=== PATIENT | male | born 1990 | race Caucasian/White ===

== ENCOUNTER 2018-03-22 22:56 | Emergency (ER) | payer BC, OTHER ==
--- NOTE | 2018-03-22 23:35 | ERPHSYRPT ---
- History of Present Illness Time Seen by Provider: 03/22/18 23:25 Source: patient, family Exam Limitations: no limitations Patient Subjective Stated Complaint: Pt states that he was having fun with his girlfriend and began having severe right side pain. Pt also c/o dizziness and right hand numbness. Triage Nursing Assessment: Pt alert and oriented. Skin normal color for race. Guarding right side and grimacing occassionally. Lung sounds clear throughout. Bowel sounds present x 4 quadrants. Physician History: 27 y/o white male presents with right lateral chest wall pain. began last pm during sex with his girlfriend. pts pain still present today. pt drove to his parents house and felt a little dizzy. pt has "busted" a few right side ribs a few years ago. has had problems with pain in the area intermittently ever since. pt denies illicit drug use. he denies head injury. he denies new medications. he does not have a cough or soa. he has had no blood loss. Timing/Duration: yesterday Severity: mild Modifying Factors: Improves With: movement (worsens as well as deep breaths) Associated Symptoms: nausea, vomiting, abdominal pain, shortness of breath, heartburn, diaphoresis, cough, chills, chest pain, fever, headaches, loss of appetite, malaise, rash, syncope, seizure, weakness Allergies/Adverse Reactions: No Known Drug Allergies Allergy (Verified 03/22/18 23:20) Hx Tetanus, Diphtheria Vaccination/Date Given: No Hx Influenza Vaccination/Date Given: No Hx Pneumococcal Vaccination/Date Given: No Immunizations Up to Date: No - Review of Systems Constitutional: No Symptoms Eyes: No Symptoms Ears, Nose, & Throat: No Symptoms Respiratory: No Symptoms, No Cough, No Dyspnea, No Stridor, No Wheezing Cardiac: No Symptoms Abdominal/Gastrointestinal: No Symptoms, No Abdominal Pain, No Nausea, No Vomiting, No Diarrhea Genitourinary Symptoms: No Symptoms, No Dysuria, No Frequency, No Hematuria Musculoskeletal: Other (right lateral chest wall pain) Skin: No Symptoms Neurological: Dizziness (mild today), No Headache, No Parasthesia, No Seizure Psychological: No Symptoms Endocrine: No Symptoms Hematologic/Lymphatic: No Symptoms Immunological/Allergic: No Symptoms All Other Systems: Reviewed and Negative - Past Medical History Pertinent Past Medical History: Yes Neurological History: No Pertinent History ENT History: No Pertinent History Cardiac History: No Pertinent History Respiratory History: No Pertinent History Endocrine Medical History: No Pertinent History Musculoskeletal History: No Pertinent History GI Medical History: No Pertinent History History: No Pertinent History Psycho-Social History: Depression Male Reproductive Disorders: No Pertinent History Other Medical History: 5 ribs fx right side 2017, left arm laceration - Past Surgical History Past Surgical History: No Neuro Surgical History: No Pertinent History Cardiac: No Pertinent History Respiratory: No Pertinent History Gastrointestinal: No Pertinent History Genitourinary: No Pertinent History Musculoskeletal: No Pertinent History Male Surgical History: No Pertinent History Other Surgical History: left arm laceration sutured - Social History Smoking Status: Current every day smoker How long have you smoked: 4 Exposure to second hand smoke: No Drug Use: marijuana Patient Lives Alone: No - Nursing Vital Signs Nursing Vital Signs: Initial Vital Signs Temperature 97.6 F 03/22/18 22:57 Pulse Rate 75 03/22/18 22:57 Respiratory Rate 22 03/22/18 22:57 Blood Pressure 141/77 03/22/18 22:57 O2 Sat by Pulse Oximetry 99 03/22/18 22:57 Pain Scale Pain Intensity 10 - Physical Exam General Appearance: no apparent distress, alert, anxiety Eye Exam: PERRL/EOMI, eyes nml inspection Ears, Nose, Throat Exam: normal ENT inspection, TMs normal, moist mucous membranes Neck Exam: normal inspection, non-tender, supple, full range of motion Respiratory Exam: normal breath sounds, chest tenderness (right chest wall), lungs clear, airway intact, No respiratory distress, No accessory muscle use, No rhonchi, No wheezing, No stridor Cardiovascular Exam: regular rate/rhythm, normal heart sounds, normal peripheral pulses Gastrointestinal/Abdomen Exam: soft, normal bowel sounds, No tenderness, No guarding, No rebound Rectal Exam: not done Back Exam: normal inspection, normal range of motion, No CVA tenderness, No vertebral tenderness Extremity Exam: normal inspection, normal range of motion, pelvis stable Neurologic Exam: alert, oriented x 3, cooperative, 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 Skin Exam: normal color, warm, dry Lymphatic Exam: No adenopathy SpO2 Interpretation: normal SpO2: 99 Oxygen Delivery: Room Air - Course Nursing assessment & vital signs reviewed: Yes EKG Interpreted by Me: RATE (78), Sinus Rhythm, NORMAL AXIS, NORMAL INTERVALS ( no acute ischemia; no comparison ekg), Non-specific ST Changes Ordered Tests: Active Orders 24 hr Category Date Time Status EKG-ER Only STAT Care 03/22/18 23:38 Active IV Insertion STAT Care 03/22/18 23:38 Active CHEST 2 VIEWS (PA AND LAT) Stat Exams 03/22/18 23:52 Taken BMP Stat Lab 03/22/18 23:15 Completed CBC W DIFF Stat Lab 03/22/18 23:15 Completed TROPONIN Q3H Lab 03/22/18 23:15 Completed TROPONIN Q3H Lab 03/23/18 02:45 Ordered TROPONIN Q3H Lab 03/23/18 05:45 Ordered TROPONIN Q3H Lab 03/23/18 08:45 Ordered TROPONIN Q3H Lab 03/23/18 11:45 Ordered UA W/RFX UR CULTURE Stat Lab 03/22/18 23:15 Completed Lab/Rad Data: Laboratory Result Diagrams 03/22/18 23:15 03/22/18 23:15 Laboratory Results 03/22/18 03/22/18 03/22/18 Range/Units 23:15 23:15 23:15 WBC (4.0-10.5) K/mm3 RBC (4.1-5.6) M/mm3 Hgb (12.5-18.0) gm/dl Hct (42-50) % MCV (78-100) fl MCH (26-32) pg MCHC (32-36) g/dl RDW (11.5-14.0) % Plt Count (150-450) K/mm3 MPV (6-9.5) fl Gran % (36.0-66.0) % Eos # (Auto) (0-0.5) Absolute Lymphs (auto) (1.0-4.6) Absolute Monos (auto) (0.0-1.3) Lymphocytes % (24.0-44.0) % Monocytes % (0.0-12.0) % Eosinophils % (0.00-5.0) % Basophils % (0.0-0.4) % Absolute Granulocytes (1.4-6.9) Basophils # (0-0.4) Sodium 143 (137-145) mmol/L Potassium 4.3 (3.5-5.1) mmol/L Chloride 106 (98-107) mmol/L Carbon Dioxide 24 (22-30) mmol/L Anion Gap 17.3 H (5-15) MEQ/L BUN 9 (9-20) mg/dL Creatinine 0.71 (0.66-1.25) mg/dL Estimated GFR > 60.0 ML/MIN Glucose 93 (74-106) mg/dL Calcium 9.8 (8.4-10.2) mg/dL Troponin I < 0.012 (0.000-0.034) ng/mL Urine Color YELLOW (YELLOW) Urine Appearance CLEAR (CLEAR) Urine pH 6.0 (5-6) Ur Specific Dixie 1.008 (1.005-1.025) Urine Protein NEGATIVE (Negative) Urine Ketones NEGATIVE (NEGATIVE) Urine Blood NEGATIVE (0-5) Johnie/ul Urine Nitrite NEGATIVE (NEGATIVE) Urine Bilirubin NEGATIVE (NEGATIVE) Urine Urobilinogen NEGATIVE (0-1) mg/dL Ur Leukocyte Esterase NEGATIVE (NEGATIVE) Urine WBC (Auto) 0-2 (0-5) /HPF Urine RBC (Auto) NONE (0-2) /HPF U Epithel Cells (Auto) NONE SEEN (FEW) /HPF Urine Mucus (Auto) SLIGHT (NEGATIVE) /HPF Urine Culture Reflexed NO (NO) Urine Glucose NEGATIVE (NEGATIVE) mg/dL 03/22/ Range/Units 23:15 WBC 7.6 (4.0-10.5) K/mm3 RBC 4.91 (4.1-5.6) M/mm3 Hgb 15.1 (12.5-18.0) gm/dl Hct 43.8 (42-50) % MCV 89.2 (78-100) fl MCH 30.8 (26-32) pg MCHC 34.5 (32-36) g/dl RDW 13.4 (11.5-14.0) % Plt Count 387 (150-450) K/mm3 MPV 10.0 H (6-9.5) fl Gran % 44.6 (36.0-66.0) % Eos # (Auto) 0.03 (0-0.5) Absolute Lymphs (auto) 3.07 (1.0-4.6) Absolute Monos (auto) 1.09 (0.0-1.3) Lymphocytes % 40.5 (24.0-44.0) % Monocytes % 14.4 H (0.0-12.0) % Eosinophils % 0.4 (0.00-5.0) % Basophils % 0.1 (0.0-0.4) % Absolute Granulocytes 3.38 (1.4-6.9) Basophils # 0.01 (0-0.4) Sodium (137-145) mmol/L Potassium (3.5-5.1) mmol/L Chloride (98-107) mmol/L Carbon Dioxide (22-30) mmol/L Anion Gap (5-15) MEQ/L BUN (9-20) mg/dL Creatinine (0.66-1.25) mg/dL Estimated GFR ML/MIN Glucose (74-106) mg/dL Calcium (8.4-10.2) mg/dL Troponin I (0.000-0.034) ng/mL Urine Color (YELLOW) Urine Appearance (CLEAR) Urine pH (5-6) Ur Specific Dix[place] (1.005-1.025) Urine Protein (Negative) Urine Ketones (NEGATIVE) Urine Blood (0-5) Johnie/ul Urine Nitrite (NEGATIVE) Urine Bilirubin (NEGATIVE) Urine Urobilinogen (0-1) mg/dL Ur Leukocyte Esterase (NEGATIVE) Urine WBC (Auto) (0-5) /HPF Urine RBC (Auto) (0-2) /HPF U Epithel Cells (Auto) (FEW) /HPF Urine Mucus (Auto) (NEGATIVE) /HPF Urine Culture Reflexed (NO) Urine Glucose (NEGATIVE) mg/dL - Progress Progress: unchanged Progress Note: 03/23/18 00:21 cxr no acute process; no rib fx; no infiltrate Counseled pt/family regarding: lab results, diagnosis, need for follow-up, rad results - Departure Time of Disposition: 00:22 Departure Disposition: Home Clinical Impression: Rib pain on right side Condition: Stable Critical Care Time: No Referrals: DOCTOR,NO FAMILY [Primary Care Provider] - Additional Instructions: follow up with primary doctor for further management. Prescriptions: Cyclobenzaprine HCl 10 mg [Flexeril 10 MG] 10 mg PO TID #12 tablet Naproxen 500 mg [Naprosyn 500 MG] 500 mg PO BID #10 tablet
[2018-03-22 23:51] LABS: BASOPHIL % 0.1 % (0.0-0.4); Basophil (Absolute #) 0.01 (0-0.4); Eosinophil % 0.4 % (0.00-5.0); Eosinophil (Absolute #) 0.03 (0-0.5); Granulocyte Absolute (ANC) 3.38 (1.4-6.9); Granulocytes % 44.6 % (36.0-66.0); Hematocrit 43.8 % (42-50); Hemoglobin 15.1 gm/dl (12.5-18.0); Lymphocyte (Absolute #) 3.07 (1.0-4.6); Lymphocytes % 40.5 % (24.0-44.0); Mean Cell Volume 89.2 fl (78-100); Mean Corpuscular Hemoglobin 30.8 pg (26-32); Mean Corpuscular Hgb Concent. 34.5 g/dl (32-36); Monocyte (Absolute #) 1.09 (0.0-1.3); Monocytes % 14.4 % (0.0-12.0); Platelet Count 387 K/mm3 (150-450); Red Blood Count 4.91 M/mm3 (4.1-5.6); Red Cell Distribution Width 13.4 % (11.5-14.0); White Blood Count 7.6 K/mm3 (4.0-10.5)
[2018-03-22 23:52] LABS: Appearance CLEAR (CLEAR); Bilirubin NEGATIVE (NEGATIVE); Blood NEGATIVE Ery/ul (0-5); Glucose NEGATIVE (NEGATIVE); Ketones NEGATIVE (NEGATIVE); Leukocyte Esterase NEGATIVE (NEGATIVE); Nitrite NEGATIVE (NEGATIVE); Protein,Urine Dip NEGATIVE (Negative); Specific Gravity 1.008 (1.005-1.025); Urobilinogen NEGATIVE mg/dL (0-1)
[2018-03-22 23:57] LABS: ANION GAP 17.3 MEQ/L (5-15); BLOOD UREA NITROGEN 9 mg/dL (9-20); CHLORIDE 106 mmol/L (98-107); Calcium 9.8 mg/dL (8.4-10.2); Carbon Dioxide 24 mmol/L (22-30); Creatinine 1 0.71 mg/dL (0.66-1.25); Glucose 93 mg/dL (74-106); Potassium 4.3 mmol/L (3.5-5.1); SODIUM 143 mmol/L (137-145)
[2018-03-23] MEDS ORDERED: Zofran 4 MG/2 ML VIAL IV ONE (00:19)
[2018-03-23] MEDS ORDERED: MORPHINE SULFATE 2 MG INJ IV ONE (00:19)
[2018-03-23] MEDS ORDERED: Norflex 60 MG/2 ML IV ONE (00:20)
[2018-03-23] MEDS ORDERED: Zofran 4 MG/2 ML VIAL ONE (00:39)
[2018-03-23] MEDS ORDERED: MORPHINE SULFATE 2 MG INJ ONE (00:40)
[2018-03-23] MEDS ORDERED: Norflex 60 MG/2 ML ONE (00:40)
[2018-03-23 01:11] VITALS: BP 109/62; O2SAT 97
[2018-03-23 01:12] VITALS: PULSE 61
--- NOTE | 2018-03-23 09:10 | XRAY ---
Indication: Right rib pain 2 days. Comparison: None PA/lateral chest demonstrates normal heart and lungs. Bony thorax intact with old right 10/11 rib fractures and minimal double curvature scoliosis.
== END 2018-03-23 01:18 | disposition home or self-care (01) ==
LOC: ED 22:56
DX: R07.81 Pleurodynia (principal); R11.2 Nausea with vomiting, unspecified; R55 Syncope and collapse; R10.9 Unspecified abdominal pain; R06.02 Shortness of breath; R51 Headache; R42 Dizziness and giddiness
CPT/HCPCS: 36000; 36415; 71046; 80048; 81001; 84484; 85025; 93005; 96374; 96375; 99284; J2270; J2360; J2405

== ENCOUNTER 2023-02-17 01:18 | Emergency (ER) | payer OTHER ==
[2023-02-17] MEDS ORDERED: Ativan 2 MG/1 ML VIAL ONE (01:37)
[2023-02-17] MEDS ORDERED: Sodium Chloride 0.9% 1000 ML 1,000 ML ONE ×3 (01:39→06:42)
[2023-02-17] MEDS ORDERED: ROCEPHIN 1 Gm-D5w 50 ml Bag** 1 G/50 ML IVPB IV ONE (02:03)
[2023-02-17 03:16] LABS: Absolute Neutrophil Ct (ANC) 14.48 x10^3/uL (1.4-6.9); BASOPHIL % 0.6 % (0.0-0.4); Basophil (Absolute #) 0.12 x10^3/uL (0-0.4); Eosinophil % 0.8 % (0.00-5.0); Eosinophil (Absolute #) 0.16 x10^3/uL (0-0.5); Hematocrit 46.6 % (42-50); Hemoglobin 16.3 g/dL (12.5-18.0); IMMATURE GRAN # 0.11 x10^3u/L (0.00-0.03); IMMATURE GRAN % 0.6 % (0.00-0.4); Lymphocyte (Absolute #) 2.68 x10^3/uL (1.0-4.6); Mean Cell Volume 87.4 fL (78-100); Mean Corpuscular Hemoglobin 30.6 pg (26-32); Mean Platelet Volume 10.3 fL (7.5-11.0); Monocyte (Absolute #) 1.59 x10^3/uL (0.0-1.3); Monocytes % 8.3 % (0.0-12.0); Neutrophil % 75.7 % (36.0-66.0); Platelet Count 381 x10^3/uL (150-450); Red Blood Count 5.33 x10^6/uL (4.1-5.6); Red Cell Distribution Width 13.2 % (11.5-14.0); White Blood Count 19.1 x10^3/uL (4.0-10.5)
[2023-02-17 03:21] LABS: Amphetamine,Urine NEGATIVE (NEGATIVE); Barbiturate,Urine NEGATIVE (NEGATIVE); Benzodiazepine,Urine NEGATIVE (NEGATIVE); Cocaine,Urine NEGATIVE (NEGATIVE); Methadone,Urine NEGATIVE (NEGATIVE); Opiate,Urine NEGATIVE (NEGATIVE); PCP,Urine NEGATIVE (NEGATIVE); THC,Urine POSITIVE (NEGATIVE)
[2023-02-17 03:25] LABS: INR 0.95 (0.8-3.0); PROTIME 10.4 SECONDS (9.4-12.5); PTT 26.8 SECONDS (25.1-36.5)
--- NOTE | 2023-02-17 03:25 | ERPHSYRPT ---
- History of Present Illness Source: patient, family Exam Limitations: clinical condition Physician History: 32 yo wm w altered LOC presents by private vehicle per his parents. Parents state that pt drove himself to their house frantic/dyspneic. They state that pt was drinking some Fireball earlier tonight due to dental pain. Pt arrived to ER hyperventilating/tachycardic/shaking violently/ oriented to name only/Pupils equal but sluggish/good airway/good sats/good BP. IV access started and 1mg IV Ativan x2 which improved tachycardia/hyperventilation. Marion placed before Ativan to obtain urine sample/UDS. Pt rushed to CT scan for CT head/C-spine. Pt became more coherent and stated that he had a toothache and drank 1 shot of Fireball and beer to help it. He also smoked some marijuana yesterday but denies other drug use. Pt also stated that he bought a puppy last night. Throat examined for possible peritonsillar abscess/airway obstruction which was not seen, although generalized erythema of oropharnyx noted. Timing/Duration: today Severity: moderate Modifying Factors: Improves With: nothing Allergies/Adverse Reactions: No Known Drug Allergies Allergy (Verified 03/22/18 23:20) Hx Tetanus, Diphtheria Vaccination/Date Given: No Hx Influenza Vaccination/Date Given: No Hx Pneumococcal Vaccination/Date Given: No - Review of Systems All Other Systems: Unable due to condition - Past Medical History Pertinent Past Medical History: Yes Neurological History: No Pertinent History ENT History: No Pertinent History Cardiac History: No Pertinent History Respiratory History: No Pertinent History Endocrine Medical History: No Pertinent History Musculoskeletal History: Fractures GI Medical History: No Pertinent History History: No Pertinent History Psycho-Social History: Depression Male Reproductive Disorders: No Pertinent History Other Medical History: 5 ribs fx right side 2017, left arm laceration - Past Surgical History Past Surgical History: No Neuro Surgical History: No Pertinent History Cardiac: No Pertinent History Respiratory: No Pertinent History Gastrointestinal: No Pertinent History Genitourinary: No Pertinent History Musculoskeletal: No Pertinent History Male Surgical History: No Pertinent History Other Surgical History: left arm laceration sutured - Social History Smoking Status: Current every day smoker How long have you smoked: 4 Exposure to second hand smoke: No Drug Use: marijuana Patient Lives Alone: No - Nursing Vital Signs Nursing Vital Signs: Initial Vital Signs Pulse Rate 92 H 09/22/23 03:15 Respiratory Rate 34 H 02/17/23 03:15 Blood Pressure 128/80 02/17/23 03:15 O2 Sat by Pulse Oximetry 99 02/17/23 03:15 Pain Scale Pain Intensity 2 Tachycardic/Sats 99%/Hypertensive upon arrival - Physical Exam General Appearance: moderate distress Eye Exam: other (Sluggish) Ears, Nose, Throat Exam: TMs normal, pharyngeal erythema (Mild/Good airway), No tonsillar exudate Neck Exam: normal inspection, non-tender, supple, full range of motion, No meningismus, No mass, No Brudzinski, No Kernig's Respiratory Exam: lungs clear, airway intact, other (Hyperventilating), No resp iratory distress Cardiovascular Exam: tachycardia, No murmur Gastrointestinal/Abdomen Exam: soft, normal bowel sounds, No tenderness Back Exam: normal inspection, normal range of motion, No CVA tenderness Extremity Exam: normal inspection, normal range of motion Neurologic Exam: disoriented, confusion, No motor deficits, No motor weakness, No facial droop, No slurred speech Skin Exam: normal color, warm, dry, No rash SpO2 Interpretation: normal SpO2: 97 O2 Delivery: Room Air - Course Nursing assessment & vital signs reviewed: Yes EKG Interpreted by Me: RATE (Sinus tach/Rate 106/Normal QT-QTc/No acute St segment changes/Possible LVH) - CT Exams Head CT Interpretation: Tele-radiologist Report (NAD/Minimal L ethmoidal/B maxillary sinusitis) Cervical Spine CT Interpretation: Tele-radiologist Report (Straightening) Chest CT Interpretation: Tele-radiologist Report (0.3cm nodule STEPHEN) Soft Tissue Neck CT Interpretation: Tele-radiologist Report (L submandibular abscess/lingual and palatine tonsillar hypertrophy) Ordered Tests: Medication Summary Discontinued Medications Generic Name Dose Route Start Last Admin Trade Name Freq PRN Reason Stop Dose Admin Sodium Chloride Confirm 02/17/23 03:23 Sodium Chloride 0.9% 1000 Ml Administered 02/17/23 03:24 Dose 1,000 mls @ ud .ROUTE .STK-MED ONE Clindamycin HCl/Dextrose 900 mg in 50 mls @ 100 mls/hr 02/17/23 05:33 02/17/23 05:47 Clindamycin-D5w 900 Mg/50 Ml IV 02/17/23 06:02 100 mls/hr STAT STA 100 mls/hr Administration Clindamycin HCl/Dextrose Confirm 02/17/23 05:47 Clindamycin-D5w 900 Mg/50 Ml Administered 02/17/23 05:48 Dose 900 mg in 50 mls @ ud IV .STK-MED ONE Sodium Chloride Confirm 02/17/23 06:42 Sodium Chloride 0.9% 1000 Ml Administered 02/17/23 06:43 Dose 1,000 mls @ ud .ROUTE .STK-MED ONE Sodium Chloride Confirm 02/17/23 01:39 Sodium Chloride 0.9% 1000 Ml Administered 02/17/23 01:40 Dose 1,000 mls @ ud .ROUTE .STK-MED ONE Ceftriaxone Sodium/Dextrose Confirm 02/17/23 02:03 Rocephin 1 Gm-D5w 50 Ml Bag Administered 02/17/23 02:04 Dose 1 g in 50 mls @ IV .STK-MED ONE Ketorolac Tromethamine 15 mg 02/17/23 03:46 02/17/23 03:48 Ketorolac Tromethamine 30 Mg/Ml Inj IV 02/17/23 03:47 15 mg STAT ONE Administration Ketorolac Tromethamine Confirm 02/17/23 03:47 Ketorolac Tromethamine 30 Mg/Ml Inj Administered 02/17/23 03:48 Dose 30 mg .ROUTE .STK-MED ONE Lorazepam Confirm 02/17/23 01:37 Lorazepam 2 Mg/1 Ml 2 Mg Vial Administered 02/17/23 01:38 Dose 2 mg .ROUTE .STK-MED ONE Lab/Rad Data: Laboratory Result Diagrams 02/17/23 01:43 02/17/23 01:43 Laboratory Results 02/17/23 02/17/23 02/17/23 Range/Units Unknown 04:48 03:49 WBC (4.0-10.5) x10^3/uL RBC (4.1-5.6) x10^6/uL Hgb (12.5-18.0) g/dL Hct (42-50) % MCV (78-100) fL MCH (26-32) pg MCHC (32-36) g/dL RDW (11.5-14.0) % Plt Count (150-450) x10^3/uL MPV (7.5-11.0) fL Gran % (36.0-66.0) % Immature Gran % (Auto) (0.00-0.4) % Nucleat RBC Rel Count (0.00-0.1) % Eos # (Auto) (0-0.5) x10^3/uL Immature Gran # (Auto) (0.00-0.03) x10^3u/L Absolute Lymphs (auto) (1.0-4.6) x10^3/uL Absolute Monos (auto) (0.0-1.3) x10^3/uL Absolute Nucleated RBC (0.00-0.01) x10^3u/L Lymphocytes % (24.0-44.0) % Monocytes % (0.0-12.0) % Eosinophils % (0.00-5.0) % Basophils % (0.0-0.4) % Absolute Granulocytes (1.4-6.9) x10^3/uL Basophils # (0-0.4) x10^3/uL PT (9.4-12.5) SECONDS INR (0.8-3.0) APTT (25.1-36.5) SECONDS Puncture Site pCO2 (35-45) mmHg pO2 (75-100) mmHg Base Excess (-2.0-2.0) O2 Saturation (94-100) g/dF ABG pH (7.35-7.45) ABG HCO3 (22-28) ABG O2 Sat (Measured) (95-100) % Juan Test A-a Gradient a/A Ratio Hemoglobin Carboxyhemoglobin (0.0-6.9) % THgb Methemoglobin (1.4-1.5) % Potassium (3.5-5.1) POC O2 Flow Rate % Sodium (137-145) mmol/L Chloride (98-107) mmol/L Carbon Dioxide (23-27) mEq/L Anion Gap (5-15) MEQ/L BUN (9-20) mg/dL Creatinine (0.66-1.25) mg/dL Estimated GFR ML/MIN Glucose (74-106) mg/dL Lactic Acid 1.1 (0.4-2.0) Calcium (8.4-10.2) mg/dL Total Bilirubin (0.2-1.3) mg/dL AST (17-59) U/L ALT (0-50) U/L Alkaline Phosphatase (38-126) U/L Troponin I (0.000-0.034) ng/mL Serum Total Protein (6.3-8.2) g/dL Albumin (3.5-5.0) g/dL Urine Color (Yellow) Urine Appearance (Clear) Urine pH (4.6-8.0) Ur Specific [place] (1.005-1.030) Urine Protein (Negative) Urine Glucose (UA) (Negative) mg/dL Urine Ketones (Negative) Urine Blood (Negative) Urine Nitrite (Negative) Urine Bilirubin (Negative) Urine Urobilinogen (0.2) mg/dL Ur Leukocyte Esterase (Negative) Urine Microscopic RBC (0-5) /HPF Urine Microscopic WBC (0-5) /HPF Ur Epithelial Cells (None Seen) /HPF Urine Bacteria (None Seen) /HPF Urine Culture Reflexed (NO) Salicylates (2-20) mg/dL Urine Opiates Level (NEGATIVE) Ur Methadone (NEGATIVE) Acetaminophen (10-30) ug/ml Urine Barbiturates (NEGATIVE) Ur Phencyclidine (PCP) (NEGATIVE) Urine Amphetamine (NEGATIVE) U Benzodiazepine Level (NEGATIVE) Urine Cocaine (NEGATIVE) Urine Marijuana (THC) (NEGATIVE) Ethyl Alcohol (0-10) mg/dL Monoscreen NEGATIVE (NEGATIVE) Influenza Type A Ag NEGATIVE (NEGATIVE) Influenza Type B Ag NEGATIVE (NEGATIVE) RSV (PCR) NEGATIVE (NEGATIVE) SARS-CoV-2 (PCR) NEGATIVE (NEGATIVE) Group A Strep Antibody (NEGATIVE) 02/17/23 02/17/23 02/17/23 Range/Units 01:43 01:43 01:43 WBC (4.0-10.5) x10^3/uL RBC (4.1-5.6) x10^6/uL Hgb (12.5-18.0) g/dL Hct (42-50) % MCV (78-100) fL MCH (26-32) pg MCHC (32-36) g/dL RDW (11.5-14.0) % Plt Count (150-450) x10^3/uL MPV (7.5-11.0) fL Gran % (36.0-66.0) % Immature Gran % (Auto) (0.00-0.4) % Nucleat RBC Rel Count (0.00-0.1) % Eos # (Auto) (0-0.5) x10^3/uL Immature Gran # (Auto) (0.00-0.03) x10^3u/L Absolute Lymphs (auto) (1.0-4.6) x10^3/uL Absolute Monos (auto) (0.0-1.3) x10^3/uL Absolute Nucleated RBC (0.00-0.01) x10^3u/L Lymphocytes % (24.0-44.0) % Monocytes % (0.0-12.0) % Eosinophils % (0.00-5.0) % Basophils % (0.0-0.4) % Absolute Granulocytes (1.4-6.9) x10^3/uL Basophils # (0-0.4) x10^3/uL PT (9.4-12.5) SECONDS INR (0.8-3.0) APTT (25.1-36.5) SECONDS Puncture Site pCO2 (35-45) mmHg pO2 (75-100) mmHg Base Excess (-2.0-2.0) O2 Saturation (94-100) g/dF ABG pH (7.35-7.45) ABG HCO3 (22-28) ABG O2 Sat (Measured) (95-100) % Juan Test A-a Gradient a/A Ratio Hemoglobin Carboxyhemoglobin (0.0-6.9) % THgb Methemoglobin (1.4-1.5) % Potassium (3.5-5.1) POC O2 Flow Rate % Sodium (137-145) mmol/L Chloride (98-107) mmol/L Carbon Dioxide (23-27) mEq/L Anion Gap (5-15) MEQ/L BUN (9-20) mg/dL Creatinine (0.66-1.25) mg/dL Estimated GFR ML/MIN Glucose (74-106) mg/dL Lactic Acid (0.4-2.0) Calcium (8.4-10.2) mg/dL Total Bilirubin (0.2-1.3) mg/dL AST (17-59) U/L ALT (0-50) U/L Alkaline Phosphatase (38-126) U/L Troponin I (0.000-0.034) ng/mL Serum Total Protein (6.3-8.2) g/dL Albumin (3.5-5.0) g/dL Urine Color Yellow (Yellow) Urine Appearance Clear (Clear) Urine pH 7.5 (4.6-8.0) Ur Specific [place] 1.020 (1.005-1.030) Urine Protein Trace A (Negative) Urine Glucose (UA) Negative (Negative) mg/dL Urine Ketones 15 A (Negative) Urine Blood Negative (Negative) Urine Nitrite Negative (Negative) Urine Bilirubin Negative (Negative) Urine Urobilinogen 1.0 A (0.2) mg/dL Ur Leukocyte Esterase Negative (Negative) Urine Microscopic RBC 0-2 (0-5) /HPF Urine Microscopic WBC 0-2 (0-5) /HPF Ur Epithelial Cells None Seen (None Seen) /HPF Urine Bacteria None Seen (None Seen) /HPF Urine Culture Reflexed NO (NO) Salicylates (2-20) mg/dL Urine Opiates Level NEGATIVE (NEGATIVE) Ur Methadone NEGATIVE (NEGATIVE) Acetaminophen (10-30) ug/ml Urine Barbiturates NEGATIVE (NEGATIVE) Ur Phencyclidine (PCP) NEGATIVE (NEGATIVE) Urine Amphetamine NEGATIVE (NEGATIVE) U Benzodiazepine Level NEGATIVE (NEGATIVE) Urine Cocaine NEGATIVE (NEGATIVE) Urine Marijuana (THC) POSITIVE (NEGATIVE) Ethyl Alcohol (0-10) mg/dL Monoscreen (NEGATIVE) Influenza Type A Ag (NEGATIVE) Influenza Type B Ag (NEGATIVE) RSV (PCR) (NEGATIVE) SARS-CoV-2 (PCR) (NEGATIVE) Group A Strep Antibody NOT DETECTED (NEGATIVE) 02/17/23 02/17/23 02/17/23 Range/Units 01:43 01:43 01:43 WBC 19.1 H (4.0-10.5) x10^3/uL RBC 5.33 (4.1-5.6) x10^6/uL Hgb 16.3 (12.5-18.0) g/dL Hct 46.6 (42-50) % MCV 87.4 (78-100) fL MCH 30.6 (26-32) pg MCHC 35.0 (32-36) g/dL RDW 13.2 (11.5-14.0) % Plt Count 381 (150-450) x10^3/uL MPV 10.3 (7.5-11.0) fL Gran % 75.7 H (36.0-66.0) % Immature Gran % (Auto) 0.6 H (0.00-0.4) % Nucleat RBC Rel Count 0.0 (0.00-0.1) % Eos # (Auto) 0.16 (0-0.5) x10^3/uL Immature Gran # (Auto) 0.11 H (0.00-0.03) x10^3u/L Absolute Lymphs (auto) 2.68 (1.0-4.6) x10^3/uL Absolute Monos (auto) 1.59 H (0.0-1.3) x10^3/uL Absolute Nucleated RBC 0.00 (0.00-0.01) x10^3u/L Lymphocytes % 14.0 L (24.0-44.0) % Monocytes % 8.3 (0.0-12.0) % Eosinophils % 0.8 (0.00-5.0) % Basophils % 0.6 (0.0-0.4) % Absolute Granulocytes 14.48 H (1.4-6.9) x10^3/uL Basophils # 0.12 (0-0.4) x10^3/uL PT 10.4 (9.4-12.5) SECONDS INR 0.95 (0.8-3.0) APTT 26.8 (25.1-36.5) SECONDS Puncture Site pCO2 (35-45) mmHg pO2 (75-100) mmHg Base Excess (-2.0-2.0) O2 Saturation (94-100) g/dF ABG pH (7.35-7.45) ABG HCO3 (22-28) ABG O2 Sat (Measured) (95-100) % Juan Test A-a Gradient a/A Ratio Hemoglobin Carboxyhemoglobin (0.0-6.9) % THgb Methemoglobin (1.4-1.5) % Potassium 3.8 (3.5-5.1) POC O2 Flow Rate % Sodium 141 (137-145) mmol/L Chloride 104 (98-107) mmol/L Carbon Dioxide 17 L (23-27) mEq/L Anion Gap 23.8 H (5-15) MEQ/L BUN 9 (9-20) mg/dL Creatinine 0.72 (0.66-1.25) mg/dL Estimated GFR > 60.0 ML/MIN Glucose 108 H (74-106) mg/dL Lactic Acid (0.4-2.0) Calcium 9.6 (8.4-10.2) mg/dL Total Bilirubin 0.50 (0.2-1.3) mg/dL AST 28 (17-59) U/L ALT 19 (0-50) U/L Alkaline Phosphatase 92 (38-126) U/L Troponin I < 0.012 (0.000-0.034) ng/mL Serum Total Protein 8.9 H (6.3-8.2) g/dL Albumin 5.3 H (3.5-5.0) g/dL Urine Color (Yellow) Urine Appearance (Clear) Urine pH (4.6-8.0) Ur Specific [place] (1.005-1.030) Urine Protein (Negative) Urine Glucose (UA) (Negative) mg/dL Urine Ketones (Negative) Urine Blood (Negative) Urine Nitrite (Negative) Urine Bilirubin (Negative) Urine Urobilinogen (0.2) mg/dL Ur Leukocyte Esterase (Negative) Urine Microscopic RBC (0-5) /HPF Urine Microscopic WBC (0-5) /HPF Ur Epithelial Cells (None Seen) /HPF Urine Bacteria (None Seen) /HPF Urine Culture Reflexed (NO) Salicylates < 1.0 L (2-20) mg/dL Urine Opiates Level (NEGATIVE) Ur Methadone (NEGATIVE) Acetaminophen < 10 L (10-30) ug/ml Urine Barbiturates (NEGATIVE) Ur Phencyclidine (PCP) (NEGATIVE) Urine Amphetamine (NEGATIVE) U Benzodiazepine Level (NEGATIVE) Urine Cocaine (NEGATIVE) Urine Marijuana (THC) (NEGATIVE) Ethyl Alcohol 105 H (0-10) mg/dL Monoscreen (NEGATIVE) Influenza Type A Ag (NEGATIVE) Influenza Type B Ag (NEGATIVE) RSV (PCR) (NEGATIVE) SARS-CoV-2 (PCR) (NEGATIVE) Group A Strep Antibody (NEGATIVE) 02/17/23 Range/Units 01:25 WBC (4.0-10.5) x10^3/uL RBC (4.1-5.6) x10^6/uL Hgb (12.5-18.0) g/dL Hct (42-50) % MCV (78-100) fL MCH (26-32) pg MCHC (32-36) g/dL RDW (11.5-14.0) % Plt Count (150-450) x10^3/uL MPV (7.5-11.0) fL Gran % (36.0-66.0) % Immature Gran % (Auto) (0.00-0.4) % Nucleat RBC Rel Count (0.00-0.1) % Eos # (Auto) (0-0.5) x10^3/uL Immature Gran # (Auto) (0.00-0.03) x10^3u/L Absolute Lymphs (auto) (1.0-4.6) x10^3/uL Absolute Monos (auto) (0.0-1.3) x10^3/uL Absolute Nucleated RBC (0.00-0.01) x10^3u/L Lymphocytes % (24.0-44.0) % Monocytes % (0.0-12.0) % Eosinophils % (0.00-5.0) % Basophils % (0.0-0.4) % Absolute Granulocytes (1.4-6.9) x10^3/uL Basophils # (0-0.4) x10^3/uL PT (9.4-12.5) SECONDS INR (0.8-3.0) APTT (25.1-36.5) SECONDS Puncture Site RIGHT RADIAL pCO2 15 L* (35-45) mmHg pO2 118 H (75-100) mmHg Base Excess -0.3 (-2.0-2.0) O2 Saturation 96.8 (94-100) g/dF ABG pH 7.65 H* (7.35-7.45) ABG HCO3 16.5 L* (22-28) ABG O2 Sat (Measured) 99 (95-100) % Juan Test YES A-a Gradient 13 a/A Ratio 0.90 Hemoglobin 16.7 Carboxyhemoglobin 2.2 (0.0-6.9) % THgb Methemoglobin 0.9 L (1.4-1.5) % Potassium 3.9 (3.5-5.1) POC O2 Flow Rate 21 % Sodium (137-145) mmol/L Chloride (98-107) mmol/L Carbon Dioxide 17 L (23-27) mEq/L Anion Gap (5-15) MEQ/L BUN (9-20) mg/dL Creatinine (0.66-1.25) mg/dL Estimated GFR ML/MIN Glucose (74-106) mg/dL Lactic Acid (0.4-2.0) Calcium (8.4-10.2) mg/dL Total Bilirubin (0.2-1.3) mg/dL AST (17-59) U/L ALT (0-50) U/L Alkaline Phosphatase (38-126) U/L Troponin I (0.000-0.034) ng/mL Serum Total Protein (6.3-8.2) g/dL Albumin (3.5-5.0) g/dL Urine Color (Yellow) Urine Appearance (Clear) Urine pH (4.6-8.0) Ur Specific [place] (1.005-1.030) Urine Protein (Negative) Urine Glucose (UA) (Negative) mg/dL Urine Ketones (Negative) Urine Blood (Negative) Urine Nitrite (Negative) Urine Bilirubin (Negative) Urine Urobilinogen (0.2) mg/dL Ur Leukocyte Esterase (Negative) Urine Microscopic RBC (0-5) /HPF Urine Microscopic WBC (0-5) /HPF Ur Epithelial Cells (None Seen) /HPF Urine Bacteria (None Seen) /HPF Urine Culture Reflexed (NO) Salicylates (2-20) mg/dL Urine Opiates Level (NEGATIVE) Ur Methadone (NEGATIVE) Acetaminophen (10-30) ug/ml Urine Barbiturates (NEGATIVE) Ur Phencyclidine (PCP) (NEGATIVE) Urine Amphetamine (NEGATIVE) U Benzodiazepine Level (NEGATIVE) Urine Cocaine (NEGATIVE) Urine Marijuana (THC) (NEGATIVE) Ethyl Alcohol (0-10) mg/dL Monoscreen (NEGATIVE) Influenza Type A Ag (NEGATIVE) Influenza Type B Ag (NEGATIVE) RSV (PCR) (NEGATIVE) SARS-CoV-2 (PCR) (NEGATIVE) Group A Strep Antibody (NEGATIVE) - Progress Progress Note: 02/17/23 05:41 Nursing Note and vital signs reviewed No food or housing insecurities noted All lab results reviewed and shared w pt/mother/father All CT results reviewed and shared w pt/mother/father 1L NS bolus x2 1gm IV Rocephin 900mg IV Clind[facility] to accept pt Pt direct accept to [facility] Unable to find ground transport for pt 02/17/23 06:01 02/17/23 06:44 Pt stable when [facility] assumed care Counseled pt/family regarding: lab results, diagnosis, rad results Medical Desision Making - Independent Historian Additional History obtained from: Mother, Father - Diagnostic Testing Diagnostic test were ordered, analyzed, and reviewed by me: Yes Radiological Interpretation: Teleradiologist Report - Risk of complications The pt has a high risk of morbidity or mortality based on: Drug therapy requiring intensive monitoring for toxicity, Decision regarding hospitilization or escalation of hosp level of care - Departure Departure Disposition: Transfer Clinical Impression: Submandibular abscess, Pharyngitis, Sepsis, Alcohol intoxication Condition: Stable Critical Care Time: Yes Critical Care Time(excluding separately billable procedures): Critical 75-104 mins Referrals: DOCTOR,NO FAMILY [Primary Care Provider] - Follow up/PCP as directed
[2023-02-17 03:32] LABS: ALBUMIN 5.3 g/dL (3.5-5.0); ALKALINE PHOSPHATASE 92 U/L (38-126); BLOOD UREA NITROGEN 9 mg/dL (9-20); CHLORIDE 104 mmol/L (98-107); Creatinine 1 0.72 mg/dL (0.66-1.25); EST GLOMERULAR FILTRATION RATE > 60.0 ML/MIN; ETHYL ALCOHOL 105 mg/dL (0-10); Glucose 108 mg/dL (74-106); Potassium 3.8 mmol/L (3.5-5.1); SGOT/AST 28 U/L (17-59); SODIUM 141 mmol/L (137-145); TROPONIN < 0.012 ng/mL (0.000-0.034); Total Protein 8.9 g/dL (6.3-8.2)
[2023-02-17 03:33] LABS: Carbon Dioxide 17 mmol/L (22-30)
[2023-02-17 03:33] LABS: ARTERIAL BLOOD GAS pH 7.65 (7.35-7.45)
[2023-02-17 03:34] LABS: A-aADO2 13; ARTERIAL BLD GAS O2 SATURATION 99 % (95-100); ARTERIAL BLOOD GAS BASE EXCESS -0.3 (-2.0-2.0); ARTERIAL BLOOD GAS PCO2 15 mmHg (35-45); ARTERIAL BLOOD GAS PO2 118 mmHg (75-100); CARBON DIOXIDE 17 mEq/L (23-27); HCO3- 16.5 (22-28)
[2023-02-17 03:34] LABS: ACETAMINOPHEN < 10 ug/ml (10-30); Calcium 9.6 mg/dL (8.4-10.2); SALICYLATE < 1.0 mg/dL (2-20); SGPT/ALT 19 U/L (0-50)
[2023-02-17 03:35] LABS: ANION GAP 23.8 MEQ/L (5-15)
[2023-02-17 03:35] LABS: ABG HEMOGLOBIN 16.7; ABG POTASSIUM 3.9 (3.5-5.1); ABG SITE RIGHT RADIAL; ALLEN TEST OK? YES; ARTERIAL BLOOD GAS FIO2 21 %; CARBOXYHEMOGLOBIN 2.2 % THgb (0.0-6.9); HGB O2 SAT 96.8 g/dF (94-100); Methhemoglobin 0.9 % (1.4-1.5)
[2023-02-17 03:37] LABS: Appearance Clear (Clear); Leukocyte Esterase Negative (Negative); Nitrite Negative (Negative); Ph 7.5 (4.6-8.0)
[2023-02-17 03:38] LABS: Bilirubin Negative (Negative); Blood Negative (Negative); Epithelial Cells None Seen /HPF (None Seen); Glucose, Urine Negative (Negative); Ketones 15 (Negative); Protein,Urine Dip Trace (Negative); RBC 0-2 /HPF (0-5); WBC 0-2 /HPF (0-5)
[2023-02-17 03:39] LABS: ADD URINE CULTURE? NO (NO); Bacteria None Seen /HPF (None Seen)
[2023-02-17] MEDS ORDERED: TORAdol 30 mg Injection IV ONE (03:46)
[2023-02-17] MEDS ORDERED: TORAdol 30 mg Injection ONE (03:47)
[2023-02-17 04:27] LABS: INFLUENZA A NEGATIVE (NEGATIVE); INFLUENZA B NEGATIVE (NEGATIVE); RESPIRATORY SYNCTIAL VIRUS NEGATIVE (NEGATIVE); SARS-CoV-2 Xpert Express NEGATIVE (NEGATIVE)
--- NOTE | 2023-02-17 05:02 | XRAY ---
CLINICAL HISTORY:Pharyngeal erythema COMPARISON:None. TECHNIQUE:CT scan of the neck with 60 cc Isovue 370 IV contrast administration. Images were acquired in axial cuts with coronal and sagittal reformation. FINDINGS: There is a localized fluid is noted at the left submandibular space, superior to the left submandibular gland measuring 1.5 x 0.7 x 2 cm in maximal dimensions. There is no enhancing wall and no calcification. There is lymphoid hypertrophy at the pharyngeal james and lingual tonsil region. There are multiple enlarged lymph nodes are noted at levels Ia, Ib, II, III and V bilaterally, the largest of them measures 1.8 x [address] appearance of the thyroid gland. Normal CT appearance of the parotid and submandibular salivary glands. Normal appearance of the laryngeal framework with no supra or infraglottic laryngeal masses seen. Normal appearance of the vascular structures and muscles of the neck. Bone window settings showed no evidence of fractures or destructive lesions. Right maxillary sinus retention cys is noted. IMPRESSION: Localized fluid collection at the left submandibular space which could be retention cyst however clinical correlation and follow-up are advised to rule out early abscess formation. Lingual and palatine tonsillar hypertrophy and multiple reactive cervical lymph nodes in keeping with the clinical diagnosis of pharyngitis. Electronically Signed by: Catie Sloan MD. (02/17/2023 04:01:14 CAPACITY MANAGEMENT SPECIALIST)
--- NOTE | 2023-02-17 05:04 | XRAY ---
CLINICAL HISTORY:fever COMPARISON:None. TECHNIQUE:Spiral axial continuous cuts were taken through the chest with multiplanar reformatting and without contrast administration. FINDINGS: There is a 0.3 cm nodule in the posterior segment of the left upper lobe next to the fissure. Both lungs are clear with no parenchymal or interstitial lesion. No evidence of masses or consolidation. Otherwise, bhe vascular pattern appears normal with no evidence of bronchovascular distortion. No significant hilar or mediastinal lymph erasmo enlargement. Normal cardiac size and shape with no pericardial effusion. The visualized pleural sacs, chest wall and axillary spaces display normal appearance. Bone window settings showed no evidence of destructive bony lesions. Scanned upper abdominal cuts are unremarkable. IMPRESSION: 0.3 cm nodule in the posterior segment of the left upper lobe. No acute pathology. Electronically Signed by: Catie Sloan MD. (02/17/2023 04:03:57 [employer]ER)
[2023-02-17] MEDS ORDERED: CLINDAMYCIN-D5W 900 MG/50 ML*** 900 MG/50 ML BAG IV STA (05:33)
[2023-02-17] MEDS ORDERED: CLINDAMYCIN-D5W 900 MG/50 ML*** 900 MG/50 ML BAG IV ONE (05:47)
[2023-02-17 06:06] VITALS: O2SAT 97
[2023-02-17 06:12] VITALS: RESP 19
[2023-02-17 06:48] VITALS: BP 127/81; PULSE 74; TEMP 98.1
--- NOTE | 2023-02-17 10:01 | XRAY ---
CLINICAL HISTORY:LEFT TOOTH [id number] COMPARISON:None. TECHNIQUES:An axial non-contrast CT scan of the brain was performed from the skull base to the high parietal region was performed without contrast. FINDINGS: The visualized brain parenchyma shows a normal appearance. No focal parenchymal abnormalities are demonstrated. العلي-white matter differentiation is maintained. Normal CT appearance of the posterior fossa structures namely the cerebellar hemispheres, brainstem, and cerebellar peduncles. No midline shifts or deformity. No intracerebral or extra axial hematoma. Normal size and configuration of the cerebral ventricles. No definite calvarial fractures. Normal CT appearance of the posterior fossa structures namely the cerebellar hemispheres, brainstem, and cerebellar peduncles. The IACs are unremarkable. The cerebello-pontine angles are clear. The osseous structures in the skull base are unremarkable. No definite calvarium fractures. Focal mucosal thickening of the left ethmoidal air cells and both maxillary antra. IMPRESSION: 1. Unremarkable non-enhanced CT study for the brain. 2. Minimal left ethmoidal and bilateral maxillary sinusitis. Electronically Signed by: Catie Sloan MD. (02/17/2023 02:10:18 [employer])
--- NOTE | 2023-02-17 10:01 | XRAY ---
CLINICAL HISTORY:LEFT TOOTH [id number] COMPARISON:None. TECHNIQUES:Thin axial CT of the cervical spine was performed with sagittal and coronal reconstructions without contrast. FINDINGS: Alignment and osseous structures: Straightening of the cervical spine denoting neck muscle spasm. The vertebral bodies are normal in height. No lytic or sclerotic bone lesion. The craniovertebral measures are unremarkable. Intervertebral disc spaces: Normal disc height is noted. Normal appearance of the atlantoaxial and atlanto-occipital articulations. Facet joints appear unremarkable. Level by Level analysis: C2-C3: No central canal or neuroforaminal stenosis. C3-C4: No central canal or neuroforaminal stenosis. C4-C5: No central canal or neuroforaminal stenosis. C5-C6: No central canal or neuroforaminal stenosis. C6-C7: No central canal or neuroforaminal stenosis. IMPRESSION: 1. Straightening of the cervical spine denoting neck muscle spasm. 2. Otherwise, unremarkable CT scan of the cervical spine. 3. No evidence of acute fractures, subluxation or dislocation. Electronically Signed by: Caite Sloan MD. (02/17/2023 02:14:17 [employer]PER[employer]OR [employer]ING)
== END 2023-02-17 06:48 | disposition short-term general hospital (02) ==
LOC: ED 01:18
DX: A41.9 Sepsis, unspecified organism (principal); K12.2 Cellulitis and abscess of mouth; J02.9 Acute pharyngitis, unspecified; F10.129 Alcohol abuse with intoxication, unspecified; Y90.5 Blood alcohol level of 100-119 mg/100 ml; Z72.0 Tobacco use
CPT/HCPCS: 0241U; 36415; 36600; 70450; 70491; 71250; 72125; 80053; 80143; 80179; 80307; 81001; 82077; 82375; 82803; 83605; 84484; 85025; 85610; 85730; 86308; 87040; 87086; 87651; 99284; 99291; 99292; 96365; 96374; J0696; J1885; J2060